=== PATIENT | female | born 1945 | race Hispanic/Latino ===

== ENCOUNTER 2021-02-24 09:30 | Day surgery (SDC) | payer MEDICARE ==
[2021-02-19 13:11] LABS: BASOPHILS % (AUTO) 0.5 % (0.0-5.0); EOSINOPHILS % (AUTO) 0.2 % (0.0-8.0); HEMATOCRIT 40.2 % (36-48); MEAN CORPUSCULAR HEMOGLOBIN 28.2 pg (27.0-33.0); MEAN CORPUSCULAR HGB CONC 32.1 g/dL (32.0-36.0); MONOCYTES % (AUTO) 2.6 % (3.0-13.0); NEUTROPHILS % (AUTO) 87.3 % (40.0-77.0); PLATELET COUNT (AUTO) 262 K/uL (130-400); RED BLOOD CELL COUNT(AUTO) 4.57 MIL/uL (4.00-5.50); RED CELL DISTRIBUTION WIDTH 14.4 % (11.0-15.5); WHITE BLOOD COUNT (AUTO) 12.4 K/uL (4.8-10.8)
[2021-02-19 13:16] LABS: CREATININE 1.9 mg/dL (0.5-1.5); POTASSIUM 4.8 mmol/L (3.5-5.1)
[2021-02-19 13:18] LABS: INR 0.96 (0.85-1.15); PROTHROMBIN TIME 10.5 SEC (9.6-11.6)
[2021-02-19 13:19] LABS: PARTIAL THROMBOPLASTIN TIME 25.9 SEC (26.3-35.5)
[2021-02-23 14:58] VITALS: BP 128/78
[2021-02-24] VITALS (18 sets, daily range): BP systolic 138–161; BP diastolic 70–86
[~2021-02-24] VITALS: Ht 157.5 cm; Wt 69.4 kg
[~2021-02-24 09:30] MED LIST: ALBU0.63 IH; ALPR1TAB7 PO; AMLO-258 PO; GABA-529 PO; HYDR25TA PO; LEVO100C4 PO; MONT10TA32 PO; PRED10TA3 PO; VITAMIN D PO
[2021-02-24] MEDS ORDERED: LACTATED RINGERS 1000ML 1,000 ML IV ONE (09:56)
[2021-02-24] MEDS: CEFAZOLIN SODIUM 1 GM VIAL ONE ×2 (09:59→13:55)
[2021-02-24] MEDS ORDERED: MIDAZOLAM HCL 1 MG/ML 2ML VIAL ONE (11:10)
[2021-02-24] MEDS ORDERED: LIDOCAINE HCL 4% LTA SOL 4 ML VIAL ONE (13:17)
[2021-02-24] MEDS ORDERED: EPINEPHRINE 1 MG/ML 30ML VIAL IJ ONE ×2 (13:19→14:16)
[2021-02-24] MEDS ORDERED: SILVER NITRATE APPLICATOR 1 SWAB TP ONE (14:38)
[2021-02-24] MEDS ORDERED: ALBUTEROL 0.083% 2.5 MG/3 ML INH IH ONE (14:59)
[2021-02-24] MEDS ORDERED: MEPERIDINE-PF 25 MG/ML SYG ONE (15:16)
== END 2021-02-24 16:45 | disposition home or self-care (01) ==
LOC: DAH 09:30
PROVIDERS: ATTEND Otolaryngology
DX: R49.0 Dysphonia (principal); Z20.822 Contact with and (suspected) exposure to COVID-19; J44.9 Chronic obstructive pulmonary disease, unspecified; E03.9 Hypothyroidism, unspecified; R13.10 Dysphagia, unspecified; R59.0 Localized enlarged lymph nodes; Z90.49 Acquired absence of other specified parts of digestive tract; Z90.710 Acquired absence of both cervix and uterus; Z98.890 Other specified postprocedural states; Z88.3 Allergy status to other anti-infective agents; Z79.899 Other long term (current) drug therapy; Z82.49 Family history of ischemic heart disease and other diseases of the circulatory system; Z87.891 Personal history of nicotine dependence; Z90.89 Acquired absence of other organs; Z98.49 Cataract extraction status, unspecified eye; Z79.82 Long term (current) use of aspirin; Z79.890 Hormone replacement therapy; Z85.21 Personal history of malignant neoplasm of larynx; Z79.01 Long term (current) use of anticoagulants
CPT/HCPCS: 31536; 36415; 80048; 85025; 85610; 85730; 87635; 88184; 88185; 88189; 88305; 88331; 93005; 94640; A4215; A4221; A4222; A4223; A4600; A4663; A4930; C9803; J0171 ×2; J0690; J2175; J2250; J7120 ×2